=== PATIENT | male | born 2000 | race Caucasian/White ===

== ENCOUNTER 2019-12-30 12:24 | Outpatient (CLI) | payer OTHER, SELFPAY ==
--- NOTE | 2019-12-30 12:30 | XRR_ITS ---
PROCEDURE INFORMATION: Exam: XR Right Wrist Exam date and time: 12/30/2019 12:42 PM Age: 19 years old Clinical indication: Wrist; Right; Patient HX: Pain mid hand to mid forearm x 1 week TECHNIQUE: Imaging protocol: XR Right wrist. Views: 3 or more views. COMPARISON: No relevant prior studies available. FINDINGS: Bones/joints: Normal. Soft tissues: Normal. XR/XR wrist RT min 3V* [id number] IMPRESSION: No acute findings.
== END 2019-12-30 12:25 | disposition home or self-care (01) ==
LOC: RAD 12:26
PROVIDERS: Visit Provider Family Medicine Adult Medicine
DX: M79.631 Pain in right forearm (principal)
CPT/HCPCS: 73110

== ENCOUNTER 2021-01-02 21:08 | Emergency (ER) | payer SELFPAY ==
--- NOTE | 2021-01-02 21:16 | XRR_ITS ---
PROCEDURE INFORMATION: Exam: XR Chest Exam date and time: 01/02/2021 9:16 PM Age: 20 years old Clinical indication: Pain; Left-sided; Additional info: Chest pain TECHNIQUE: Imaging protocol: XR of the chest. Views: 1 view. COMPARISON: CR Thoracic Spine 3+ views* [id number] 01/29/2019 3:24 PM FINDINGS: Lungs: Unremarkable. No consolidation. Pleural spaces: Unremarkable. No pleural effusion. No pneumothorax. Heart/Mediastinum: Unremarkable. No cardiomegaly. Bones/joints: Unremarkable. XR/XR chest 1V portable [id number] IMPRESSION: No acute findings.
--- NOTE | 2021-01-02 21:16 | ECG_ITS ---
[facility] Test Date: 2021-01-02 Pat Name: Donya Garcia Department: Room: Gender: Male Composition Instructor: : 2000 Requested By: Arabella Bell Order Number: [id number] Marta MD: Rogers Ramirez M.D. Measurements Intervals [place] Rate: 80 P: 34 NH: 199 QRS: 5 QRSD: 124 T: 43 QT: 354 QTc: 409 Interpretive Statements SINUS RHYTHM MODERATE INTRAVENTRICULAR CONDUCTION DELAY [110+ ms QRS DURATION] No previous ECG available for comparison Electronically Signed On 01-02-2021 22:07:07 CDT by Rogers Ramirez M.D. [email or web address]/store/[id number]
[2021-01-02 21:35] VITALS: BP 166/108; PULSE 87; RESP 20; TEMP 36.8; O2SAT 97; BMI 38.2
[2021-01-03 00:05] LABS: Troponin(5th) Baseline 6 ng/L (0-15)
[2021-01-03 00:45] LABS: Basophils # 0.1 10^3/uL (0.0-0.1); Basophils % 0.8 %; Eosinophils # 0.4 10^3/uL (0.0-0.8); Eosinophils % 3.5 %; Hematocrit 49.7 % (42.0-52.0); Hemoglobin 16.1 g/dL (11.7-16.6); Lymphocytes # 4.2 10^3/uL (0.8-4.8); Mean Corpuscular HGB Conc 32.4 g/dL (30.0-36.0); Mean Corpuscular Hemoglobin 28.6 pg (28.0-34.0); Mean Corpuscular Volume 88.3 fl (80-94); Mean Platelet Volume 11.1 fL (7.4-10.4); Monocytes # 0.8 10^3/uL (0.2-0.9); Monocytes % 7.8 %; Neutrophils # 4.75 10^3/uL (1.8-7.7); Neutrophils % 46.6 %; Nucleated Red Blood Cells % 0 %; Platelet Count 272 10^3/cmm (130-400); Red Blood Count 5.63 10^6/uL (4.1-5.3); White Blood Count 10.2 10^3/uL (4.0-10.0)
[2021-01-03 01:22] LABS: Troponin 5 2HR Delta 0 ABS# (0-10)
[2021-01-03 01:30] LABS: Anion Gap 14.1 (5-19); Blood Urea Nitrogen 11 mg/dL (6-20); Calcium 9.7 mg/dL (8.5-10.5); Carbon Dioxide 26 mmol/L (22-29); Chloride 102 mmol/L (98-107); Glomerular Filtration Rate 120.9 mL/min (90-130); Glucose 83 mg/dL (65-115); Osmolality Calculated 285 mOsm/kg (285-295); Potassium 4.1 mmol/L (3.5-5.1); Sodium 138 mmol/L (136-145)
--- NOTE | 2021-01-03 01:48 | W.ED.GENADLT ---
HPI - General Adult General: Chief complaint: Chest Pain Stated complaint: Chest Pain Time Seen by Provider: 01/03/21 01:46 History of Present Illness: HPI narrative: CC: Chest Pain HPI: This is a [20]yo patient hx of family hx of cardiac issues presenting to the ED complaining of acute sudden onset intermittent sharp chest pain since 5:15pm WITHOUT radiation to the back or shoulders. No associated with shortness of breath, chest pain or dyspnea on exertion. Pain is not tearing in nature and does not radiate to the back. Pain not associated with vomiting or PO intake. Denies any recent sympathomimetic drug use. Patient denies any cough. Denies palpitations, dysphagia, diaphoresis, radiation of pain to bilateral arms, jaw. Denies F/N/V/D. Patient denies any recent immobility, surgery, unilateral leg swelling, or prior PE. Patient denies any orthopnea. Onset: 4 hrs ago Duration: ongoing for the last 4 hrs (intermittent, currently chest pain free) Location: home Severity: mild/moderate Review of Systems Narrative: Constitutional: No fever, no chills. HEENT: No vision changes, no sore throat. CV: +chest pain, no palpitations. PULM: No cough, No dyspnea. GI: No abdominal pain, no N/V/D. : No dysuria, no frequency, no hematuria. MSKEL: No arthralgias, no edema. SKIN: No new rashes, no lesions. NEURO: No headache, no focal weakness. HEME: No easy bleeding or bruising. PSYCH: No change in mood or affect. [facility] ED PFSH: Medical History (Updated 01/03/21 @ 01:47 by Arabella Bell MD) Cellulitis of right wrist Social History (Updated 12/30/19 @ 11:34 by Analia Shaw LPN) Smoking and tobacco status: current every day smoker Alcohol intake: current Physical Exam Narrative: EXAM NARRATIVE: Head: Atraumatic, normocephalic Eyes: PERRL, EOMI, conjunctiva without injection ENT: Throat without erythema, lesions or exudate, MMM NECK: Supple, trachea midline, no JVD LUNGS: LCTA CV: RRR, S1,S2, no murmurs, rubs, gallops. 2+ peripheral pulses in UEs ABDOMEN: Soft, nontender, nondistended, BS x4, no rigidity, no guarding, no rebound EXTREMITY: Normal ROM, no pitting edema, no calf tenderness to palpation SKIN: No rash or erythema NEURO: Awake and alert. No focal motor deficits. PSYCH: Normal mood and affect. Course Vital Signs: Vital signs: Vital Signs Temperature 98.3 F 01/02/21 21:35 Pulse Rate 87 01/02/21 21:35 Respiratory Rate 20 H 01/02/21 21:35 Blood Pressure 166/108 01/02/21 21:35 Pulse Oximetry 97 01/02/21 21:35 MDM - General Adult MDM Narrative: Medical decision making narrative: [20]yo patient w/ hx of family hx of cardiac issues presenting to the ED with evaluation of new onset sharp/tingling pain since 5:15pm. HDS, pulse 2+ radially bilaterally, no signs of fluid overload, AAOx3, neuro exam intact. Given History and Exam today I have no suspicion for ACS, Pneumothorax, Pneumonia, Pulmonary Embolus, Tamponade, Aortic Dissection or other emergent problems as a cause for this presentation. Workup: ECG, CXR, CBC, BMP, Troponin x 2 Findings: ECG: EKG showing regular sinus rhythm at HT of [80]. Normal axis. No ST elevations/depressions to suggest coronary occlusion. Normal SC, QRS, QT intervals. No overt evidence of STEMI, hyperacute T waves, localizable STD or T wave inversions. No evidence of Brugada?s sign, delta wave, epsilon wave, significantly prolonged QTc, or malignant arrhythmia. No Q waves. Other Labs unremarkable for emergent problems. CXR: Without PTX, PNA, or widened mediastinum Last Stress Test: never Last Heart Catheterization: never HEART Score: 0 PERC: Negative [1:57am] On reassessment, the patient is HDS, no complaints of persistent chest pain in the ED after evaluation. ECG is non-ischemic. Workup today is unremarkable. Doubt ACS/PE or other emergent causes of chest pain. Doubt ACS/PE or other emergent causes of chest pain. No suspicion for aortic dissection given no widened mediastinum, 2+ upper extremity pulses, or tearing pain. No suspicion for PE given no pleuritic chest pain, recent immobilization or surgery hemoptysis, or other VTE risk factors. EKG is non-ischemic. XR normal. Rx: Tylenol PRN pain However given family hx, patient may benefit from close followup with cardiology. I have given patient follow up with our pillowcase sewer to be seen by our outpatient Cardiology. Patient aware of a call from our pillowcase sewer to schedule for appointment(s) and verbalizes understanding of the importance of following up. Patient aware of the importance of followup. Disposition: Discharge. Strict return precautions discussed with the patient with full understanding. Advised patient to follow up promptly with a primary care provider in 24-48 hrs if the patient has persistent symptoms. Given return instructions for any crushing/tearing chest pain, focal weakness, syncope or any new or concerning issues. Lab Data: Labs: Lab Results 01/02/21 01/02/21 01/02/21 23:15 23:15 23:15 WBC 10.2 10^3/uL H 10 ^3/uL (4.0-10.0) RBC 5.63 10^6/uL H 10 ^6/uL (4.1-5.3) Hgb 16.1 g/dL g/dL (11.7-16.6) Hct 49.7 % % (42.0-52.0) MCV 88.3 fl fl (80-94) MCH 28.6 pg pg (28.0-34.0) MCHC 32.4 g/dL g/dL (30.0-36.0) RDW 13.0 % % (12.1-15.1) Plt Count 272 10^3/cmm 10^3 /cmm (130-400) MPV 11.1 fL H fL (7.4-10.4) Neut % (Auto) 46.6 % % Lymph % (Auto) 41.0 % % [place] % (Auto) 7.8 % % Eos % (Auto) 3.5 % % Baso % (Auto) 0.8 % % Neut # (Auto) 4.75 10^3/uL 10^3 /uL (1.8-7.7) Lymph # (Auto) 4.2 10^3/uL 10^3/ uL (0.8-4.8) [place] # (Auto) 0.8 10^3/uL 10^3/ uL (0.2-0.9) Eos # (Auto) 0.4 10^3/uL 10^3/ uL (0.0-0.8) Baso # (Auto) 0.1 10^3/uL 10^3/ uL (0.0-0.1) Nucleated RBC % (a uto) 0 % % Nucleated RBCs # 0.0 /100WBC /100W BC D-Dimer 0.30 ug/mIFEU ug/ mIFEU (0-0.59) Sodium Potassium Chloride Carbon Dioxide Anion Gap BUN Creatinine GFR Calculation Glucose Calculated Osmolal ity Calcium Troponin T Baselin e 6 ng/L ng/L (0-15) Troponin T 120 Min chilkoot Delta Troponin T 01/02/21 01/03/21 23:15 00:53 WBC RBC Hgb Hct MCV MCH MCHC RDW Plt Count MPV Neut % (Auto) Lymph % (Auto) [place] % (Auto) Eos % (Auto) Baso % (Auto) Neut # (Auto) Lymph # (Auto) [place] # (Auto) Eos # (Auto) Baso # (Auto) Nucleated RBC % (a uto) Nucleated RBCs # D-Dimer Sodium 138 mmol/L mmol/L (136-145) Potassium 4.1 mmol/L mmol/L (3.5-5.1) Chloride 102 mmol/L mmol/L (98-107) Carbon Dioxide 26 mmol/L mmol/L (22-29) Anion Gap 14.1 (5-19) BUN 11 mg/dL mg/dL (6-20) Creatinine 0.8 mg/dL mg/dL (0.7-1.2) GFR Calculation 120.9 mL/min mL/m in (90-130) Glucose 83 mg/dL mg/dL (65-115) Calculated Osmolal ity 285 mOsm/kg mOsm/ kg (285-295) Calcium 9.7 mg/dL mg/dL (8.5-10.5) Troponin T Baselin e Troponin T 120 Min [place] 6.00 ng/L ng/L (0-15) Delta Troponin T 0 ABS# ABS# (0-10) Imaging Data^: Other Imaging: Radiologist's impression: Josi [address] [id number] ReportSigned Patient: Donya Garcia #: [id number]: 2000Acct#:[id number]/Sex: 20 / MADM Date: 01/02/21Loc: ERRoom/Bed:Attending Dr: Ordering Provider/Ordering MD: Arabella Bell MD Date of Service: 01/02/21 Procedure(s): XR chest 1V portable [id number] Accession Number(s): [id number] Report Number: [id number] PROCEDURE INFORMATION: Exam: XR Chest Exam date and time: 01/02/2021 9:16 PM Age: 20 years old Clinical indication: Pain; Left-sided; Additional info: Chest pain TECHNIQUE: Imaging protocol: XR of the chest. Views: 1 view. COMPARISON: CR Thoracic Spine 3+ views* [id number] 01/29/2019 3:24 PM FINDINGS: Lungs: Unremarkable. No consolidation. Pleural spaces: Unremarkable. No pleural effusion. No pneumothorax. Heart/Mediastinum: Unremarkable. No cardiomegaly. Bones/joints: Unremarkable. XR/XR chest 1V portable [id number] IMPRESSION: No acute findings. Dictated By:Gabe Heart MDSigned By:Gabe Heart MDSigned Date/Time:01/02/212DD/ 09 Discharge Plan Discharge Patient Disposition: Home Clinical Impression: Chest pain Condition: Stable Prescriptions: New acetaminophen 500 mg tablet 500 mg PO Q6H PRN (Reason: pain) 5 Days Qty: 20 RF: 0 No Action escitalopram oxalate [Lexapro] 10 mg tablet 10 mg PO DAILY RF: 0 meloxicam [Mobic] 15 mg tablet 15 mg PO DAILY Qty: 20 RF: 1 cephalexin 750 mg capsule 750 mg PO BID Qty: 20 RF: 0 Discharge Orders: Discharge ED (Routine); Ordered 01/03/21 Ordered By: Arabella Bell Discharge Diet: Advance as tolerated Discharge Activity: Resume usual activity Patient Instructions: Chest Pain (ED) Activity Restrictions/Additional Instructions: Come back to the emergency room if your pain worsens, have any fever or chills, nausea/vomiting, or any new or concerning complaints. Coding Level of Care Code ED Wire Frame Dipper for Mary Beth Dickens
--- NOTE | 2021-01-03 01:59 | PC.NURSE ---
Please see physician assessment. Pt discharged from waiting room.
[2021-01-03 02:01] VITALS: BP 150/88; PULSE 73; RESP 18; O2SAT 97
--- NOTE | 2021-01-03 10:01 | DCPLANNER ---
Addendum entered by Leah Martell 04/28/21 10:38: Patient had a follow up appointment scheduled with [facility] - patient did attend appointment. Original Note: manager test had message to schedule a follow up appointment for patient with heart care. manager test called [facility], spoke with Danielle, gave clinic patients information. A follow up appointment was scheduled for , January 19, 2021 at 12:[address] Monsivais. manager test called phone number [phone], not taking phone calls at this time. manager test called patients father, and gave him the appointment information, and the phone number to the clinic.
== END 2021-01-03 02:03 | disposition home or self-care (01) ==
PROVIDERS: Emergency Provider Emergency Medicine
DX: R07.9 Chest pain, unspecified (principal); F17.210 Nicotine dependence, cigarettes, uncomplicated
CPT/HCPCS: 36415; 71045; 80048; 84484; 85025; 85378; 93005; 99283

== ENCOUNTER 2021-02-07 09:11 | Outpatient (CLI) | payer SELFPAY ==
--- NOTE | 2021-02-07 10:45 | NMCV_ITS ---
NM sandip perf SPECT r/s* [id number] Donya Gracia Age: 20 Gender: M : 2000 Exam Date: 02/07/2021 10:45 Ordering Phys: Rogers Ramirez M.D ([email or web address]) Technologist: SHI More Exam Location: [facility] Indications: CHEST PAIN STRESS TEST Please [facility] IMAGE PROTOCOL Rest/Stress 1 Lexiscan Day Radiopharmaceutical Dose (mCi) Administration Site Administered by Rest: Tc-99m 10.9 IV SHI Deluna Sestamibi Stress:Tc-99m 32.5 IV SHI Deluna Sestamibi Rest: 07-Feb-2021 60 Discovery 630 Stress: 07-Feb-2021 30 Discovery 630 0.4mg Lexiscan. Images obtained in supine and prone position. SPECT RESULTS Technical Quality: Excellent Raw Data Analysis: Normal Image Corrections: No attenuation or motion correction applied Summed Stress Score: 8 Summed Rest Score: 6 Summed Difference Score: 3 PERFUSION FINDINGS There is medium sized, mostly fixed perfusion defect of the anteroseptal, anterior and inferior polanco. This likely represents prior infarct vs attenuation artifact. No evidence of ischemia is noted FUNCTIONAL RESULTS (calculated via Gated SPECT) Stress Image LV EF (%): 61 Stress EDV (mL):189 TID: 1.02 Stress ESV (mL):73 FUNCTIONAL FINDINGS: There is normal left ventricular systolic function. IMPRESSIONS 1. Abnormal myocardial perfusion imaging. Low radiotracer uptake is noted in the anterior, anteroseptal and inferior polanco with no significant reversibility. This likely represents attenuation artifact vs prior infarct. 2. LV systolic function is normal Rogers Ramirez MD (Electronically Signed) Final Date: 09 February 2021 15:41 S
--- NOTE | 2021-02-07 10:45 | ECG_ITS ---
[facility] Test Date: 2021-02-07 Pat Name: Donya Garcia Department: Room: Gender: Male Press Breaker: : 2000 Requested By: Rogers Ramirez Order Number: [id number] Marta MD: Rogers Ramirez M.D. Interpretive Statements NAME OF STUDY: LEXISCAN SESTAMIBI STRESS TEST INDICATION: [Chest Pain, ] Procedure: At the baseline, the blood pressure was 167/101 mmHg with a heart rate of 75 bpm. The electrocardiogram showed normal sinus rhythm, normal axis with normal ST and T's. The Lexiscan was infused over a period of 20 seconds. A total of 0.4 mg of Lexiscan was infused. The stress phase was continued for a total of 5 minutes. Heart rate was at the end of stress phase was 90 bpm and a blood pressure of 165/91 mmHg. The EKG at the peak infusion revealed since normal sinus rhythm with no significant ST-T wave changes. Sestamibi was injected 20 seconds after the Lexiscan infusion. Blood pressure at the end of recovery phase was 171/84 mmHg with a heart rate of 81 bpm. Conclusion: 1. Normal EKG response to Lexiscan infusion 2. No Lexiscan induced chest pain or cardiac arrhythmia. 3. Normal blood pressure and heart rate response. 4. Sestamibi/sestamibi perfusion scan pending; see separate report. Electronically Signed On 02-13-2021 11:26:08 DIRECTOR SALES AND TRADE MARKETING by Rogers Ramirez M.D. [id number]
[2021-02-07 11:03] VITALS: BMI 39.1
[2021-02-07] MEDS: regadenoson 0.4 Mg/5 ml Syringe IVP (11:16)
[2021-02-07 12:00] VITALS: BP 164/86; PULSE 91
== END 2021-02-07 09:12 | disposition home or self-care (01) ==
LOC: CDL 09:13
PROVIDERS: Visit Provider Internal Medicine
DX: R07.9 Chest pain, unspecified (principal); R06.02 Shortness of breath
CPT/HCPCS: 78452; 93017; A9500; J2785

== ENCOUNTER → 2021-03-21 11:10 | Outpatient (BNVA) | payer OTHER, SELFPAY | PROVIDERS: Referring Provider Specialist; Visit Provider Internal Medicine | DX: Z01.818 Encounter for other preprocedural examination (principal); I10 Essential (primary) hypertension; R94.39 Abnormal result of other cardiovascular function study; Z20.822 Contact with and (suspected) exposure to COVID-19 | CPT/HCPCS: 80048; 85025; 85610; 87635 ==

== ENCOUNTER 2021-03-27 09:08 | Outpatient (CLI) | payer SELFPAY ==
[2021-03-27] VITALS (23 sets, daily range): BP systolic 111–177; BP diastolic 61–113; PULSE 65–93; RESP 11–24; TEMP 36.3; O2SAT 95–98; BMI 38.1
--- NOTE | 2021-03-27 09:00 | XACV_ITS ---
Ht: 208 cm Wt: 166 kg BSA: 3.14 m2 Gender: Male : 2000 Any Known Allergies: Other Exam Priority: Routine Procedure(s): Procedure Description: Diagnostic procedure Procedure Description: Left Heart Catheterization Procedure Description: Left ventriculography Procedure Description: Coronary Angiography Diagnostic Cath Status: Elective Diagnostic Findings * INDICATION: Patient had abnormal stress test however did not show significant ischemia. He continues having chest pain symptoms because of which he is unable to perform his everyday activities. He also mentioned significant premature cardiac disease history in the family. After discussion regarding medical therapy versus cardiac catheterization he wanted to proceed with heart cath. * No disease noted in the Left Main, Left Anterior Descending, Right, or Circumflex coronary arteries. * Coronary angiography shows right dominance. Conclusions 1. No disease noted in the Left Main, Left Anterior Descending, Right, or Circumflex coronary arteries. 2. Normal left ventricular systolic function. Ejection fraction of 50%. Recommendations * Noncardiac chest pain. * If other reasons for chest pain are ruled out, can try long acting nitrates. * Aggressive risk factor modification, emphasized the need for hypertension control. * Outpatient cardiology follow up in 4 weeks. Interventional RX Recommendation: medical therapy and/or counseling Diagnostic RX Recommendation: medical therapy and/or counseling Anticoagulation: Heparin Ventriculography Ejection Fraction: 50.0 % Pressures Phase:Rest AO : 130 / 85 ( 101 ) @ 8:33:00 AM 128 / 88 ( 102 ) @ 8:41:00 AM 120 / 83 ( 95 ) @ 9:05:00 AM 122 / 67 ( 92 ) @ 9:13:00 AM 124 / 73 ( 93 ) @ 9:13:00 AM LV : 131 / -24 / 4 @ 9:12:00 AM 134 / -20 / 4 @ 9:13:00 AM 136 / -19 / 6 @ 9:13:00 AM Valves Phase:DefaultPhase AV : 14.0 @ 11:20:25 AM AV Mean Gradient: 14.0 @ 11:20:25 AM Clinical Evaluation EBL: 5mL-10mL Procedural Details Procedure Consent Obtained. Pre-Procedure Time Out. Identified patient by full name and date of as verbalized by the patient/guarantor. Does the consent match the physician's order: Yes. Accurate & Complete Informed Consent: Yes. Inpatient/Outpatient History & Physical on Chart: Yes. If H&P is completed, is and addenduem needed: No; If yes, is the addendum complete: N/A. Visualize and Verify Site with Patient/Guarantor: N/A. Relevant Radiology Images available: N/A. Pre-op teaching completed and patient verbalized understanding. The risks, benefits, and alternatives of sedation and/or procedure were discussed by physician. The patient agrees to continue. Procedure started. [facility] Clinical Fraility Score: 2: Well. Deburrer Indications: New Onset Angina, abnormal stress test. Chest Pain Symptom Assessment: Atypical Angina. Cardiovascular Instability: No. Correct patient, site and procedure confirmed by cath team. PERRLA. Strong, equal hand parole hearing officer bilaterally. Lungs clear x 5 lobes. IV Site on Arrival: 20 gauge in the right anticubital. IV Fluids: 0.9% NaCl at KVO. 0 mL infused prior to oven laborer. Pre Procedural Pulses: bilateral radial was 3+. Oxygen started at 2liters/min via nasal canula. right radial was prepped with chloroprep then draped in the usual sterile fashion. right groin was prepped with chloroprep then draped in the usual sterile fashion. Physician arrived. Equipment: 6F - Radial. Cardiac Cath Pack. ACIST Manifold Kit Model BT 2000. Heparinized Saline (2 units/mL), 1000 mL bag. Baseline sample Acquired. HR: 59 BPM. Physician scrubbed in. Immediate Pre-Procedure Time Out. Correct Patient: Yes; Correct Procedure: Yes; Correct Site: Yes; Correct Patient Position: Yes; Correct Supplies: Yes; Dried Flammable Prep: Yes; Blood Products Available: N/A;. Lidocaine 1% infiltrated to the right radial. Arterial access obtained. A 5 montenegrin 125 cm JL4 catheter in over wire. Catheter removed over the exchange wire. A 5 montenegrin TIG catheter in over wire. Multiple views taken of right coronary artery. Catheter removed over the exchange wire. A 5 montenegrin JR5 catheter in over wire. Multiple views taken of right coronary artery. Catheter removed over the exchange wire. A 5 montenegrin JL5 catheter in over wire. Catheter removed over the exchange wire. Pt has artery spasm using radial approach. A TR Band was successful obtaining hemostatsis at the Right Radial artery insertion site. Physician moving to femoral approach. Lidocaine 1% infiltrated to the right groin. Physician using ultrasound machine to assist in gaining femoral artery access. Arterial access obtained with micropuncture set. A 5 montenegrin JL5 catheter in over wire. Multiple views taken of left coronary artery. Catheter removed over the exchange wire. A 5 montenegrin Angled Pig catheter in over wire. EDP Sample taken: LV 131/-25,4; HR: 70 BPM; SpO2: 96%. LV gram performed in HAYES @ 10 mL/second for a total of 30 mL. EDP Sample taken: LV 134/-21,4; HR: 78 BPM; SpO2: 95%. Pullback taken: LV 136/-20,6; AO 122/67(92); Mean: 14mmHg, Peak to Peak: 14mmHg, SEP: 20sec/min; HR: 79 BPM; SpO2: 96%. Catheter removed over the exchange wire. Physician scrubbed out. Arterial sheath flushed and secured. Pt being transfered to CPRU and sheath will be pulled there. Post Procedure: Pulses reassessed and unchanged. PERRLA. Strong, equal hand parole hearing officer bilaterally. No VTE prophylaxis required. Medication's Wasted: Nitro = 49.6 mg. Medication's Wasted: Heparin = 1000 units. Total IV fluids: 65 mL. Contrast type used: Visipaque 320 mgI/mL, 500 mL bottle. Complications: none. Estimated blood loss: 5mL-10mL. Responsiveness - Normal response to verbal stimuli; alert and oriented, PERRLA. Airway - Unaffected, no intervention required; spontaneous ventilation. Circulation: W/N/L, pulses unchanged. Nausea/Vomiting: No. Procedure completed. Patient transferred by stretcher to CPRU. Vital chart was stopped. Access Site Site: Right Radial artery Sheath Size: 6 Fr Hemostasis Method: TR Band Hemostasis Success: Successful Site: Right Femoral artery Sheath Size: 6 Fr Hemostasis Success: Unsuccessful Procedure Medications Start: 10:21 AM Stop: 10:21 AM Medication: Versed Amount: 1 mg Route: I.V. Start: 10:21 AM Stop: 10:21 AM Medication: Fentanyl Amount: 50 mcg Route: I.V. Start: 10:23 AM Stop: 10:23 AM Medication: Versed Amount: 1 mg Route: I.V. Start: 10:23 AM Stop: 10:23 AM Medication: Fentanyl Amount: 50 mcg Route: I.V. Start: 10:31 AM Stop: 10:31 AM Medication: Versed Amount: 1 mg Route: I.V. Start: 10:31 AM Stop: 10:31 AM Medication: Fentanyl Amount: 50 mcg Route: I.V. Start: 10:30 AM Stop: 10:30 AM Medication: Nitrogylcerin Amount: 200 mcg Route: I.A. Start: 10:33 AM Stop: 10:33 AM Medication: Heparin Amount: 5000 units Route: I.V. Start: 10:35 AM Stop: 10:35 AM Medication: Versed Amount: 1 mg Route: I.V. Start: 10:35 AM Stop: 10:35 AM Medication: Fentanyl Amount: 50 mcg Route: I.V. Start: 10:45 AM Stop: 10:45 AM Medication: Nitrogylcerin Amount: 200 mcg Route: I.A. Start: 10:48 AM Stop: 10:48 AM Medication: Versed Amount: 1 mg Route: I.V. Start: 10:50 AM Stop: 10:50 AM Medication: Nitrogylcerin Amount: 200 mcg Route: I.A. Start: 10:56 AM Stop: 10:56 AM Medication: Versed Amount: 1 mg Route: I.V. I, the attending physician, have reviewed and verified all procedure medications. Yes, all medications given per verbal order History/Risk Factors Hypertension: Yes Dyslipidemia: No Peripheral Arterial Disease (PAD): No Myocardial Infarction ([place]): No Obesity: Yes Renal Disease: No Prior Interventions PCI: No CABG: No Valve Surgery: No Report Signatures Finalized by Rogers Ramirez MD on 04/04/2021 10:38 AM
[2021-03-27] MEDS: diphenhydrAMINE 50 mg Capsule PO (09:47)
--- NOTE | 2021-03-27 10:23 | W.PM.OPSUD ---
Surgery/Procedure H&P Update DATE OF PROCEDURE: March 27, 2021 DATE H&P PERFORMED: 03/01/21 H&P UPDATE INFORMATION: I have reviewed H&P completed within last 30 days, I have examined patient prior to procedure and No changes to prior documentation PREOP DIAGNOSIS: Chest pain/abnormal stress test PRIMARY INDICATION FOR PROCEDURE: Chest pain/abnormal stress test PLANNED PROCEDURE: Operation Date: 03/27/21 10:00 Proposed Procedures p Cardiac Catheterization(Left) - Rogers Ramirez M.D Possible percutaneous coronary intervention PATIENT REASSESSED PRIOR TO SEDATION, WITH NO CHANGE NOTED: Yes PHYSICAL EXAM: alert, oriented x 3, clear to auscultation bilaterally and regular rate & rhythm AIRWAY EVAL/ANESTHESIA PLAN: ASA III, Monitored Anesthesia, Local Anesthesia, Risks, benefits & alternatives of sedation and/or procedure discussed and Patient agrees to continue as planned
--- NOTE | 2021-03-27 11:45 | PC.NURSE ---
Right femoral 6fr sheath pulled by Cherie Brownlee RN. Pressure held for 30minutes until hemostasis achieved. Dressing with biocclussive. Site is clean, dry and asymptomatic. Pt is upset about bedrest requirements. Verbalized several times wanting to go outside and smoke. Dr. Ramirez at bedside and gave verbal orders for bedrest X 4 hrs and discharge home in 6 hrs. Pt offered nicotine gum/patch and declined both. Pt doesn't make eye contact with nurse. Refuses to eat and drink anything until discharged. Will continue to monitor.
--- NOTE | 2021-03-27 12:32 | PC.NURSE ---
2ml air removed from TR band. Site asymptomatic, radial pulse palpable. Will continue to monitor.
--- NOTE | 2021-03-27 12:40 | PC.NURSE ---
2ml air removed from right radial TR band. Site asymptomatic. No signs of oozing/hematoma. Denies pain. Radial pulse palpable. Will continue to monitor
--- NOTE | 2021-03-27 12:53 | PC.NURSE ---
2ml air removed from right radial TR band. Site asymptomatic. No signs of oozing/hematoma. Denies pain. Radial pulse palpable. Will continue to monitor
--- NOTE | 2021-03-27 13:09 | PC.NURSE ---
3ml air removed from right radial TR band. Site asymptomatic. No signs of oozing/hematoma. Denies pain. Radial pulse palpable. Will continue to monitor
--- NOTE | 2021-03-27 13:20 | PC.NURSE ---
2ml air removed from right radial TR band. Site asymptomatic. No signs of oozing/hematoma. Denies pain. Radial pulse palpable. Will continue to monitor
--- NOTE | 2021-03-27 13:31 | PC.NURSE ---
2ml air removed from right radial TR band. Site asymptomatic. No signs of oozing/hematoma. Denies pain. Radial pulse palpable. Will continue to monitor
--- NOTE | 2021-03-27 13:45 | PC.NURSE ---
remaining 2ml removed from right radial TR band. TR band removed and site cleaned. Band aid placed to site. Site asymptomatic . Verbal instructions given about extremity restrictions, pt resistant to learning. Mom is at bedside.
--- NOTE | 2021-03-27 15:18 | PC.NURSE ---
Clarification of bed rest orders Dr. Ramirez notified at this time for clarification of bed rest duration orders. Telephone orders received patient may get up and ambulated 4 hrs after sheath pull. Discharge in 6 hrs.
--- NOTE | 2021-03-27 16:12 | PC.NURSE ---
Ambulated Pt up to ambulate to bathroom and back to bed. Pt would not ambulate any further distance. Right femoral site checked, asymptomatic. Soft, clean , dry and intact. Right radial site asymptomatic. Will continue to monitor.
--- NOTE | 2021-03-27 17:01 | PC.NURSE ---
Up ambulated to bathroom and back to bed. Right radial site asymptomatic no signs of hematoma. Right femoral dressing clean, dry, and intact. No bleeding or hematoma.
== END 2021-03-27 17:51 | disposition home or self-care (01) ==
PROVIDERS: Visit Provider Internal Medicine
DX: R07.9 Chest pain, unspecified (principal); R94.39 Abnormal result of other cardiovascular function study; I10 Essential (primary) hypertension; E66.9 Obesity, unspecified; Z68.38 Body mass index [BMI] 38.0-38.9, adult; F17.210 Nicotine dependence, cigarettes, uncomplicated
CPT/HCPCS: 36415; 93452; C1769; C1887; C1894; J1644; J2250; J3010; J3490; J7030; Q0163; Q9967

== ENCOUNTER 2024-02-02 04:38 | Emergency (ER) | payer SELFPAY ==
[2024-02-02 04:38] VITALS: PULSE 101; RESP 22; TEMP 37.2; O2SAT 98
--- NOTE | 2024-02-02 04:58 | W.ED.PSYCHS ---
HPI - Psych General: Chief Complaint: Psychiatric Symptoms Stated Complaint: SI Time Seen by Provider: 02/02/24 04:58 History of Present Illness: 23-year-old male patient with no current psychiatric history. He presents via ambulance, evidently after police were called regarding the patient being upset and belligerent. At that time, the patient made threats that the police were going out to kill him. He was distraught over relationship problems with his significant other. He presents without affidavits from law enforcement or EMS, and no law enforcement escort or witness to this activity. Currently the patient is anxious, but denies homicidal or suicidal ideation. He states simply I just want to go home. I want to be left alone . He evidently has family members on the way. He denies recent illness or medical problems. Related Data Allergies Allergy/AdvReac Type Severity Reaction Status Date / Time cetirizine [From [facility]] AdvReac Hyperactive Verified 04/10/21 09:28 [facility] PFS: Medical History Hypertension Cellulitis of right wrist Family History Grandfather Diabetes Hypertension Social History Second hand smoke exposure: Yes Alcohol intake: current Substance/Drug Use: never Physical Exam Const: GENERAL APPEARANCE: well developed and anxious; not ill appearing and not frail appearing ORIENTATION/CONSCIOUSNESS: Yes awake, Yes oriented to person, Yes oriented to place and Yes oriented to time HENMT: COMMON NORMALS: normocephalic, atraumatic and Normal external nose present HEAD & SCALP: normocephalic and atraumatic FACE & SINUS: normal facial exam and face symmetric NOSE: Normal external nose present Eye: COMMON NORMALS: Equal, round and reactive pupils present and EOMs intact bilaterally PUPIL: Yes Equal, round and reactive pupils present Neck/C-Spine: GENERAL: Yes trachea midline Chest: CHEST: Yes Symmetrical chest wall rise Resp: COMMON NORMALS: normal respiratory effort, No retractions, No use of accessory muscles and clear to auscultation bilaterally AUSCULTATION: clear to auscultation bilaterally Cardio: COMMON NORMALS: regular rate and regular rhythm RATE: regular rate RHYTHM: regular rhythm GI: COMMON NORMALS: Normal to inspection, nondistended, normoactive bowel sounds present Extremity: COMMON NORMALS: no pedal edema Neuro: TORREY COMA SCALE: document GCS findings [place] coma scale eye opening: Spontaneous [place] coma scale verbal response: Orientated [place] coma scale motor response: Obey commands [place] coma scale total score: 15 SENSORIUM/ORIENTATION: Yes oriented to person, Yes oriented to place and Yes oriented to time SENSORY EXAM: Yes extremities (intact) Psych: COMMON NORMALS: speech normal, denies homicidal ideation and denies suicidal ideation APPEARANCE: Yes grossly normal ATTITUDE: Yes Guarded attititude/behavior present, No Belligerent attititude/behavior present and No hostile ACTIVITY/MOTOR BEHAVIOR: Yes appropriate eye contact and Yes psychomotor agitation (Mild) SPEECH: Yes normal speech THOUGHT PROCESS: No confused Skin: COMMON NORMALS: no rashes or lesions noted GENERAL SKIN EXAM: no rashes or lesions noted Course Vital Signs: Vital signs: Vital Signs Temperature 98.9 F 02/02/24 04:38 Pulse Rate 101 H 02/02/24 04:38 Respiratory Rate 22 H 02/02/24 04:38 Pulse Oximetry 98 02/02/24 04:38 Oxygen Delivery Me thod Room Air 02/02/24 04:38 MDM - Psych Medical Decision Making The patient initially refused to give up his phone or dressed in paper scrubs as per policy for psychiatric patients. On my interview, the patient floridly denies homicidal or suicidal ideation. He is in no way wanting to harm anyone he says. He just wants to go home and go to bed. He has family members on the way. He gives me his word, that if released, he will go home, he will not harm himself, or anyone else. Our staff is spoken with the patient's mother, who feels safe taking him home. Medically, he is quite stable. No radiology studies performed this visit Discharge Plan Discharge Patient Disposition: Home Clinical Impression: Acute reaction to situational stress Condition: Stable Discharge Orders: Discharge ED (Routine); Ordered 02/02/24 Ordered By: Shahram Lowry Patient Instructions: Stress (ED), Opioid Safety, Pain Management Activity Restrictions/Additional Instructions: Return immediately to the emergency department for thoughts or wishes to harm your self or someone else. Go home and rest. See your doctor this week. Coding Level of Care Code ED Hospital Scientist for [facility]
--- NOTE | 2024-02-02 05:05 | PC.NURSE ---
Pt refusing BP and refusing to dress out in scrubs. Charge at bedside to explain the reason behind needing to dress out. Pt states it ain't happening. Security was contacted. Police contacted for safety considering the size of the pt and pt escalating. MD to bedside. Pt explains situation today was secondary to him being angry. States he just wants to be left alone so he can sleep, but someone called the production supervisor trainee. Pt denies SI/HI at this time. Per EMS, pt did not express SI/HI to them.
--- NOTE | 2024-02-02 05:12 | PC.NURSE ---
Pt was not placed in scrubs per MD order.
== END 2024-02-02 06:17 | disposition home or self-care (01) ==
PROVIDERS: Emergency Provider Emergency Medicine
DX: F43.0 Acute stress reaction (principal)
CPT/HCPCS: 99285